=== PATIENT | male | born 1955 | race African-American/Black ===

== ENCOUNTER → 2024-12-28 12:00 | Outpatient (BNV) | payer OTHER, SELFPAY | PROVIDERS: Visit Provider Radiology Diagnostic Radiology | DX: M71.22 Synovial cyst of popliteal space [Baker], left knee (principal) | CPT/HCPCS: 93971 ==

== ENCOUNTER 2024-12-28 12:02 | Outpatient (REF) | payer OTHER, SELFPAY | END 2024-12-28 12:03 | disposition home or self-care (01) | LOC: HO.UMASIMG 12:02 | PROVIDERS: Visit Provider Family Medicine | DX: R22.42 Localized swelling, mass and lump, left lower limb (principal); C61 Malignant neoplasm of prostate | CPT/HCPCS: 93971 ==

== ENCOUNTER 2025-02-10 06:45 | Outpatient (REF) | payer OTHER, SELFPAY ==
--- NOTE | ~2025-02-10 | US_ITS ---
EXAMINATION: Ultrasound extremity nonvascular. CLINICAL INFORMATION: Lump in the left lower leg TECHNIQUE: Real-time ultrasound with a linear transducer in the region of concern using grayscale and color Doppler technique.. COMPARISON: None FINDINGS: The intrauterine left popliteal vein demonstrated normal phasic flow and compressibility. There is a 2.6 cm lobulated anechoic lesion without flow on color Doppler interrogation in the popliteal region. US/US extremity nonvascular weiss IMPRESSION: 2.6 cm, left popliteal cyst Electronically signed by: Pravin Singh MD 02/10/2025 12:03 PM EDT
== END 2025-02-10 06:46 | disposition home or self-care (01) ==
LOC: HO.UMASIMG 06:45
PROVIDERS: Visit Provider Family Medicine
DX: R22.42 Localized swelling, mass and lump, left lower limb (principal)
CPT/HCPCS: 76882

== ENCOUNTER → 2025-02-10 10:00 | Outpatient (BNV) | payer OTHER, SELFPAY | PROVIDERS: Visit Provider Radiology Diagnostic Radiology | DX: M71.22 Synovial cyst of popliteal space [Baker], left knee (principal) | CPT/HCPCS: 76882 ==